=== PATIENT | female | born 1960 | race Caucasian/White ===

== ENCOUNTER 2018-11-28 16:03 | Emergency (ER) | payer OTHER ==
[~2018-11-28] VITALS: Ht 170.2 cm; Wt 65.8 kg
[~2018-11-28 16:03] MED LIST: CIPRSO BOTHEYES; CYCL10 PO; HYDACE5 PO; HYDR1TAB94 PO; IBUP600 PO; IBUP800 PO; TOBR.3OPSO OP
[2018-11-28] MEDS ORDERED: HYDR1TAB94 PO (17:30)
[2018-11-28] MEDS ORDERED: Crutch1 EACH MISC (17:32)
== END 2018-11-28 18:00 | disposition home or self-care (01) ==
LOC: ER 16:03
DX: S92.354A Nondisplaced fracture of fifth metatarsal bone, right foot, initial encounter for closed fracture (principal); X50.9XXA Other and unspecified overexertion or strenuous movements or postures, initial encounter; Z88.2 Allergy status to sulfonamides
CPT/HCPCS: 29105; 73620; 99283-25

== ENCOUNTER → 2021-09-17 | Outpatient (CLI) | payer OTHER ==
[~2021-09-17] MED LIST changes: +Crutch1 EACH MISC; +OXYACE7.5T PO
[2021-09-17 20:04] LABS: Free Thyroxine 0.81 ng/dL (0.70-1.60)
[2021-09-17 20:07] LABS: Thyroid Stimulating Hormone 1.01 uIU/mL (0.360-4.800)
== END ==
LOC: LAB SHORT 19:27
PROVIDERS: Nurse Practitioner
DX: E04.1 Nontoxic single thyroid nodule (principal)
CPT/HCPCS: 84439; 84443

== ENCOUNTER 2024-06-21 12:35 | Emergency (ER) | payer OTHER ==
[~2024-06-21] VITALS: Ht 170.2 cm; Wt 68.0 kg
[~2024-06-21 12:35] MED LIST changes: +Naprosyn500 MG PO
[2024-06-21 13:38] VITALS: BP 183/108
== END 2024-06-21 15:03 | disposition home or self-care (01) ==
LOC: ER 12:35
DX: M25.531 Pain in right wrist (principal); Z88.2 Allergy status to sulfonamides
CPT/HCPCS: 29125; 73110; 99283-25

== ENCOUNTER 2024-06-26 17:07 | Emergency (ER) | payer OTHER ==
[~2024-06-26] VITALS: Ht 167.6 cm; Wt 68.0 kg
[2024-06-26 17:20] VITALS: BP 176/90
== END 2024-06-26 21:28 | disposition home or self-care (01) ==
LOC: ER 17:07
DX: S52.591A Other fractures of lower end of right radius, initial encounter for closed fracture (principal); Z88.2 Allergy status to sulfonamides; W18.30XA Fall on same level, unspecified, initial encounter
CPT/HCPCS: 73110; 99282-25

== ENCOUNTER 2025-01-06 23:24 | Emergency (ER) | payer MEDICARE, OTHER ==
[~2025-01-06] VITALS: Ht 172.7 cm; Wt 81.7 kg
[2025-01-07] MEDS ORDERED: Morphine Sulfate 4 MG/1 ML Injection IV ONE (00:40)
[2025-01-07] MEDS ORDERED: Ondansetron HCl 2 MG / ML 2ML Vial ONE (00:53)
[2025-01-07] MEDS ORDERED: OXAYDO5 M1 PO (03:57)
[2025-01-07 04:25] VITALS: BP 153/93
== END 2025-01-07 04:24 | disposition home or self-care (01) ==
LOC: ER 23:24
DX: S52.572A Other intraarticular fracture of lower end of left radius, initial encounter for closed fracture (principal); S52.612A Displaced fracture of left ulna styloid process, initial encounter for closed fracture; Z88.2 Allergy status to sulfonamides; Z79.1 Long term (current) use of non-steroidal anti-inflammatories (NSAID); W10.8XXA Fall (on) (from) other stairs and steps, initial encounter
CPT/HCPCS: 24675; 73110; 76000; 96374-59; 96375-59; 99283; J2270; J2405